=== PATIENT | female | born 1970 | race Caucasian/White ===

== ENCOUNTER 2018-03-06 01:16 | Inpatient (IN) | payer SELFPAY ==
[~2018-03-06] VITALS: Ht 170.2 cm; Wt 81.2 kg
[2018-03-06] VITALS (8 sets, daily range): BP systolic 122–175; BP diastolic 68–90; PULSE 76–119; RESP 16–20; TEMP 97.8–98.4; O2SAT 96–99
[~2018-03-06 01:16] MED LIST: ADDE10 PO
[2018-03-06] MEDS ORDERED: SODIUM CHLOR 0.9% 1000 ML INJ 1,000 ML IV ONE ×2 (01:45→03:30)
--- NOTE | 2018-03-06 02:16 | RADRPT ---
EXAM DATE: 03/06/2018 2:10 AM EDT AGE/SEX: 47 years / Female INDICATIONS: Substernal chest pain. CLINICAL DATA: This is the patient's initial encounter. Patient reports that signs and symptoms have been present for 1 day and indicates a pain score of 8/10. MEDICAL/SURGICAL HISTORY: None. None. COMPARISON: No prior [place] exams available for comparison. FINDINGS: A single AP view of the chest demonstrates the lungs to be symmetrically aerated without evidence of mass, infiltrate or effusion. The cardiomediastinal contours are unremarkable. Osseous structures a re intact. CONCLUSION: No acute intrathoracic disease. Electronically signed by: Jonathan Mosquera MD 03/06/2018 2:15 AM EDT
[2018-03-06 02:27] LABS: BACTERIA, URINE RARE /hpf; BLOOD, URINE TRACE (NEG); GLUCOSE,URINE NEG (NEG); HYALINE CAST, URINE 41 /lpf (RARE); KETONE, URINE 80 mg/dL (NEG); MUCUS URINE MANY /lpf (OCC); NITRITE,URINE NEG (NEG); PH, URINE 5.5 (5.0-8.5); SQUAMOUS EPITHELIAL CELL URINE 2 /hpf (0-5); URINE COLOR YELLOW (YELLW/STRAW); URINE LEUKOCYTE ESTERASE NEG (NEG)
[2018-03-06 02:29] LABS: AUTOMATED NEUTROPHIL # 6.7 TH/MM3 (1.8-7.7); BASOPHIL # 0.1 TH/MM3 (0-0.2); BASOPHIL % 0.6 % (0.0-2.0); EOSINOPHIL # 0.1 TH/MM3 (0-0.4); EOSINOPHIL % 1.3 % (0.0-4.0); HEMATOCRIT 38.7 % (35.0-46.0); HEMOGLOBIN 13.3 GM/DL (11.6-15.3); LYMPH % 23.5 % (9.0-44.0); LYMPHOCYTE # 2.4 TH/MM3 (1.0-4.8); MEAN CELL VOLUME 86.8 FL (80.0-100.0); MEAN CORPUSCULAR HEMOGLOBIN 29.8 PG (27.0-34.0); MEAN CORPUSCULAR HGB CONC 34.4 % (32.0-36.0); MEAN PLATELET VOLUME 8.2 FL (7.0-11.0); MONO % 8.4 % (0.0-8.0); MONOCYTE # 0.8 TH/MM3 (0-0.9); NEUT % 66.2 % (16.0-70.0); PLATELET COUNT 438 TH/MM3 (150-450); RED BLOOD COUNT 4.46 MIL/MM3 (4.00-5.30); RED CELL DISTRIBUTION WIDTH 13.3 % (11.6-17.2); WHITE BLOOD COUNT 10.1 TH/MM3 (4.0-11.0)
[2018-03-06] MEDS ORDERED: LORazepam 2 MG/ML VIAL IV PUSH ONE ×2 (02:30→11:45)
[2018-03-06 02:35] LABS: BILIRUBIN, URINE NEG (NEG)
[2018-03-06 02:40] LABS: BICARBONATE 23.2 MEQ/L (21.0-32.0); BLOOD UREA NITROGEN 7 MG/DL (7-18); CALCIUM 9.1 MG/DL (8.5-10.1); CHLORIDE 103 MEQ/L (98-107); CREATININE 0.84 MG/DL (0.50-1.00); GLOMERULAR FILTRATION RATE 72 ML/MIN (>89); GLUCOSE,RANDOM 102 MG/DL (74-106); MAGNESIUM 1.9 MG/DL (1.5-2.5); SODIUM (NA) 137 MEQ/L (136-145); TROPONIN I LESS THAN 0.02 NG/ML (0.02-0.05)
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
--- NOTE | 2018-03-06 03:08 | RADRPT ---
EXAM DATE: 03/06/2018 3:05 AM EDT AGE/SEX: 47 years / Female INDICATIONS: Cephalgia CLINICAL DATA: This is the patient's initial encounter. Patient reports that signs and symptoms have been present for 1 day and indicates a pain score of 7/10. MEDICAL/SURGICAL HISTORY: None. None. RADIATION DOSE: 56.35 CTDI (mGy) COMPARISON: No prior [place] exams available for comparison. TECHNIQUE: CT of the head without contrast. Using automated exposure control and adjustment of the mA and/or kV according to patient size, radiation dose was kept as low as reasonably achievable to ob tain optimal diagnostic quality images. FINDINGS: Cerebrum: The ventricles are normal for age. Mild cortical atrophy overlying the frontal lobes. No evidence of midline shift, mass lesion, hemorrhage or acute infarction. No extraaxial fluid collecti ons are seen. Posterior Fossa: The cerebellum and brainstem are intact. The 4th ventricle is midline. The cerebe llopontine angle is unremarkable. Extracranial: The visualized portion of the orbits is intact. Skull: The calvaria is intact. No evidence of skull fracture. CONCLUSION: 1. Mild cortical atrophy of the frontal lobes. 2. Otherwise, unremarkable study. Electronically signed by: Jonathan Mosquera MD 03/06/2018 3:06 AM EDT
[2018-03-06] MEDS ORDERED: LORazepam 2 MG/ML VIAL IM PRN (15:00)
[2018-03-06] MEDS ORDERED: BENZTROPINE MESYLATE 2 MG/2 ML VIAL IM PRN (15:00)
[2018-03-06] MEDS ORDERED: BENZTROPINE MESYLATE 1 MG TAB PO PRN (15:00)
[2018-03-06] MEDS ORDERED: ALUMINUM/MAGNESIUM/SIMETH 30 ML CUP PO PRN (15:00)
[2018-03-06] MEDS ORDERED: MAGNESIUM HYDROXIDE SUSP 30 ML CUP PO PRN (15:00)
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
[2018-03-06] MEDS: LORazepam 1 MG TAB PO PRN (18:09)
--- NOTE | 2018-03-06 18:21 | EKG ---
Date Performed: 03/06/2018 Time Performed: 08:59:55 PTAGE: 47 years EKG: Sinus rhythm INCOMPLETE RIGHT BUNDLE BRANCH BLOCK BORDERLINE ECG NO PREVIOUS TRACING DOCTOR: Alonso Momin Interpretating Date/Time 03/06/2018 18:19:36
[2018-03-06] MEDS: OLANZapine 5 MG TAB PO SCH (20:49)
[2018-03-06] MEDS ORDERED: REMOVE OLD NICODERM (NICOTINE) PATCH T-DERMAL PRN (21:00)
[2018-03-06 22:37] LABS: FREE T4 1.05 NG/DL (0.76-1.46)
[2018-03-07 05:59] VITALS: BP 118/69; PULSE 85; RESP 16; TEMP 98; O2SAT 97
[2018-03-07 08:14] LABS: ALBUMIN 3.2 GM/DL (3.4-5.0); AST (GOT) 5 U/L (15-37); BLOOD UREA NITROGEN 4 MG/DL (7-18); CALCIUM 8.3 MG/DL (8.5-10.1); CHLORIDE 111 MEQ/L (98-107); CREATININE 0.63 MG/DL (0.50-1.00); GLOMERULAR FILTRATION RATE 100 ML/MIN (>89); GLUCOSE,RANDOM 86 MG/DL (74-106); SODIUM (NA) 144 MEQ/L (136-145)
[2018-03-07 08:15] LABS: ALT (GPT) 15 U/L (10-53); CHOLESTEROL 134 MG/DL (120-200); TRIGLYCERIDES 79 MG/DL (42-150)
[2018-03-07 08:17] LABS: ALKALINE PHOSPHATASE 54 U/L (45-117); CHOLESTEROL/ HDL RATIO 2.99 RATIO; HDL CHOLESTEROL 44.8 MG/DL (40.0-60.0); LDL CHOLESTEROL 73 MG/DL (0-99); TOTAL BILIRUBIN ADULT 0.3 MG/DL (0.2-1.0); TOTAL PROTEIN 5.9 GM/DL (6.4-8.2)
[2018-03-07] MEDS: LORazepam 1 MG TAB PO PRN ×2 (09:06→17:04)
[2018-03-07] MEDS: ACETAMINOPHEN 325 MG TAB PO PRN (09:08)
[2018-03-07] MEDS: NICOTINE 21 MG/24 HR PATCH T-DERMAL PRN (09:49)
--- NOTE | 2018-03-07 13:26 | HHI.PYPN ---
Subjective Chief Complaint: Psychosis Remarks Patient seen and examined with nurse. Chart reviewed. Case discussed with nursing staff. Patient noted to be somewhat more irritable and dysphoric this morning by nursing. She refused her Zyprexa last night. She completed a right of release this morning. On my examination today, the patient remains extremely delusional. She tells me that she has been implanted with a chip by the [employer]. She tells me that she has "evidence on a code source drive" and as a consequence the government is trying to set her up as a terrorist. She repeats the material about being the human [employer] project and about land being given to her family prior to the country's founding. She does ultimately agree to rescind the ROR and give the Zyprexa a try. She denies any suicidal or homicidal ideation and particular denies any "thoughts of revenge" against the people she believes are conspiring against her. Patient does seek for stimulant, namely Adderall. With the patient's permission, placed a call to mother Kyra Sprague at the number listed in the EMR. Ms. Sprague notes that patient had no history of psychosis until last March. Patient had ordered some substance off the internet from [employer] and had been taking it and had begun to develop the psychotic symptoms present today. Unclear if patient is still using this substance. Mother does note that patient has been taking mother's metoprolol and also has been receiving Valium from a friend. She also has a history of opiate abuse. There is no family history of mental illness except father may have had BPAD. Mother notes patient's behavior of late has been quite erratic. Patient has reportedly been eating poorly. Mother believes patient requires ongoing psychiatric stabilization. Review of Systems ROS Limitations: Psychotic Except as stated in HPI: all other systems reviewed are Neg Mental Status Examination Appearance: Appropriate Consciousness: Alert Orientation: x4 Motor Activity: Other (No abnormal motor movements noted) Speech: Unremarkable Language: Adequate Fund of Knowledge: Adequate Attention and Concentration: Adequate Memory: Unremarkable (Grossly intact on clinical exam) Mood: Other (Dysphoric) Affect: Other (Restricted) Thought Process & Associations: Linear (Within delusional system) Thought Content: Delusional Hallucination Type: None Delusion Type: Somatic, Other (Paranoid/persecutory) Suicidal Ideation: No (But see above) Suicidal Plan: No Suicidal Intention: No Homicidal Ideation: No Homicidal Plan: No Homicidal Intention: No Insight: Fair Judgment: Impulsive Results Labs Item Value Date Time Erythrocyte Sedimentation Rate 10 mm/hr 03/06/182108 Vitamin B12 Level GREATER THAN 2000 PG/ML H 03/06/182108 Estimat Glomerular Filtration Rate 100 ML/MIN 03/07/18 0612 Ammonia 25 MCMOL/L 03/06/18 1520 Free Thyroxine 1.05 NG/DL 03/06/182108 HIV (1&2) Ab and P24 Ag, 4th Gener NONREACTIVE 03/06/182108 Rapid Plasma Reagin NON-REACTIVE 03/06/182108 Labs reviewed. EKG read as sinus rhythm with an incomplete right bundle branch block with a QTc of 415 ms. Vitals/IOs Vital Signs Date Time Temp Pulse Resp B/P (MAP) Pulse Ox O2 Delivery O2 Flow Rate FiO2 03/07/18 05:59 98.0 85 16 118/69 (85) 97 03/06/18 11:35 Room Air Assessment & Plan Problem List: (1) Other psychotic disorder not due to a substance or known physiological condition ICD Codes: F28 - Other psychotic disorder not due to a substance or known physiological condition Assessment & Plan First dose of Zyprexa this evening. Plan to titrate to effect to target psychosis. Workup for organic causes of psychosis so far unrevealing, although collateral information from mother certainly raises the specter of drug-induced psychotic disorder. Continue to monitor on the inpatient unit. Continue other medications and care as ordered. Patient did rescind right of release as noted above. Justification for Cont. Inpt. Impairment in reality construction. High risk for decompensation in less restrictive environment. Discharge Planning Pending psychiatric stabilization Request HC Surrog/Guard Advoc?: No Lloyd Reyes MD Mar 07, 2018 13:26
[2018-03-07 16:00] VITALS: BP 128/85; PULSE 87; RESP 16; TEMP 98.3
[2018-03-07 16:57] LABS: HEMOGLOBIN A1C 5.1 % (4.3-6.0)
[2018-03-07] MEDS: diphenhydrAMINE HCL 50 MG CAP PO PRN (21:16)
[2018-03-07] MEDS: OLANZapine 5 MG TAB PO SCH (21:16)
[2018-03-08 06:07] VITALS: BP 116/73; PULSE 76; RESP 16; TEMP 97.8; O2SAT 99
[2018-03-08] MEDS: LORazepam 1 MG TAB PO PRN ×2 (10:08→16:30)
[2018-03-08] MEDS: ACETAMINOPHEN 325 MG TAB PO PRN ×3 (10:08→21:06)
--- NOTE | 2018-03-08 11:21 | HHI.PYPN ---
Subjective Chief Complaint: Psychosis Remarks Patient seen and examined with nurse and counselor. Chart reviewed. Case discussed with nursing staff. Case discussed in treatment team. On my examination today, the patient is initially in superficially good spirits. She tells me that she feels very much improved. She was apparently hopeful for discharge today, and her mood sours rapidly when I recommend that she remain through the weekend at least. She does ultimately agreed to remain voluntarily. She continues to elaborate delusional material as before, q.v. previous notes, although this is perhaps a little bit less distressing for her today. It is difficult to tell as patient is trying to 'play good,' I suspect in service of hastening discharge. I discuss report from mother that patient was buying drugs off the internet. Patient says that she purchased a drug called "E-hex" from the internet because she could not get anyone to write for Adderall. This may represent N-ethylhexedrone, a stimulant drug. Patient denies ongoing abuse of this substance. She denies side effects from medications. No physical complaints. Review of Systems ROS Limitations: Psychotic, Poor Historian Except as stated in HPI: all other systems reviewed are Neg Mental Status Examination Appearance: Appropriate Consciousness: Alert Orientation: x4 Motor Activity: Other (No hand tremor, no dystonia, no dyskinesia noted. No other motor abnormalities noted.) Speech: Unremarkable Language: Adequate Fund of Knowledge: Adequate Attention and Concentration: Adequate Memory: Unremarkable (Grossly intact on clinical exam) Mood: Irritable Affect: Blunt Thought Process & Associations: Linear (Within delusional system) Thought Content: Delusional Hallucination Type: None Delusion Type: Somatic, Other (Paranoid/persecutory) Suicidal Ideation: No (But see above) Suicidal Plan: No Suicidal Intention: No Homicidal Ideation: No Homicidal Plan: No Homicidal Intention: No Insight: Poor Judgment: Poor Results Labs Labs reviewed. Outstanding psychosis workup labs are extended tox and EDEL. Vitals/IOs Vital Signs Date Time Temp Pulse Resp B/P (MAP) Pulse Ox O2 Delivery O2 Flow Rate FiO2 03/08/18 06:07 97.8 76 16 116/73 (87) 99 03/06/18 11:35 Room Air Assessment & Plan Problem List: (1) Other psychotic disorder not due to a substance or known physiological condition ICD Codes: F28 - Other psychotic disorder not due to a substance or known physiological condition Assessment & Plan Patient is tolerating Zyprexa well. She continues to articulate systematized delusions. Titrate Zyprexa through the weekend to target psychosis. Continue to monitor on the inpatient unit. Continue other medications and care as ordered. Justification for Cont. Inpt. Medication changes. Impairment in reality construction. High risk for decompensation and less restrictive environment. Discharge Planning Pending psychiatric stabilization Request HC Surrog/Guard Advoc?: No Lloyd Reyes MD Mar 08, 2018 11:21
--- NOTE | 2018-03-08 11:49 | PD.TTN ---
Patient Problems 1. Discharge planning 2. Medication compliance 3. Knowledge deficit 4. Lack of coping skills Progress Toward Goals Provider Present: Dr. Solomon Reyes Provider Input: Dr. Reyes's held his treatment team to discuss patient's discharge, treatment plan, and medication. Patient's medication is being adjusted. Patient continues to present depressed, and psychotic Nurse(s) Input: Patient's nurse stated patient is cooperative, guarded, labile, medication compliant, easily agitated Psychiatric Counselors Present: Cecily Sanchez [facility] Psych Therapist Input: Patient presents still disorganized and confused about her situation. Patient is still presenting with delusional content. about being the code source about a radha being planted in her brain. Patient was cooperative during assessment. Group Spec/RT/OT/PATEL Present: AMANDA Kline Group Spec/RT/OT/PATEL Input: Does not attend groups Cecily Sanchez [facility] Mar 08, 2018 11:49
[2018-03-08] MEDS: NICOTINE 21 MG/24 HR PATCH T-DERMAL PRN (16:30)
[2018-03-08 18:05] VITALS: BP 128/68; PULSE 88; RESP 16; TEMP 98.3; O2SAT 99
[2018-03-08] MEDS: OLANZapine 5 MG TAB PO SCH (20:54)
[2018-03-08] MEDS: diphenhydrAMINE HCL 50 MG CAP PO PRN (21:05)
[2018-03-09] MEDS: ACETAMINOPHEN 325 MG TAB PO PRN ×3 (08:35→21:36)
[2018-03-09] MEDS: LORazepam 1 MG TAB PO PRN ×3 (08:35→21:35)
--- NOTE | 2018-03-09 16:23 | HHI.PYPN ---
Subjective Chief Complaint: Psychosis Remarks Pt seen and discussed with staff. She has been compliant with medications and care. She has been in room for most of day but did visit with family today. Decreased delusions. No SI/HI Mental Status Examination Appearance: Appropriate Consciousness: Alert Orientation: x4 Motor Activity: Other (No hand tremor, no dystonia, no dyskinesia noted. No other motor abnormalities noted.) Speech: Unremarkable Language: Adequate Fund of Knowledge: Adequate Attention and Concentration: Adequate Memory: Unremarkable (Grossly intact on clinical exam) Mood: Irritable Affect: Blunt Thought Process & Associations: Linear (Within delusional system) Thought Content: Delusional Hallucination Type: None Delusion Type: Paranoid, Somatic Suicidal Ideation: No (But see above) Suicidal Plan: No Suicidal Intention: No Homicidal Ideation: No Homicidal Plan: No Homicidal Intention: No Insight: Poor Judgment: Poor Results Vitals/IOs Vital Signs Date Time Temp Pulse Resp B/P (MAP) Pulse Ox O2 Delivery O2 Flow Rate FiO2 03/08/18 18:05 98.3 88 16 128/68 (88) 99 03/06/18 11:35 Room Air Assessment & Plan Problem List: (1) Other psychotic disorder not due to a substance or known physiological condition ICD Codes: F28 - Other psychotic disorder not due to a substance or known physiological condition Assessment & Plan Pt improving. Continue current tx plan. Estimated LOS: days Justification for Cont. Inpt. impairments in reality testing. Request HC Surrog/Guard Advoc?: No Nora Hilliard MD Mar 09, 2018 16:23
[2018-03-09 18:10] VITALS: BP 116/63; PULSE 91; RESP 17; TEMP 98.4; O2SAT 97
[2018-03-09] MEDS: OLANZapine 5 MG TAB PO SCH (21:26)
[2018-03-09] MEDS: diphenhydrAMINE HCL 50 MG CAP PO PRN (21:26)
[2018-03-10 06:01] VITALS: BP 104/64; PULSE 77; RESP 16; TEMP 98; O2SAT 96
[2018-03-10] MEDS: ACETAMINOPHEN 325 MG TAB PO PRN ×2 (09:01→15:25)
[2018-03-10] MEDS: LORazepam 1 MG TAB PO PRN ×3 (09:01→21:15)
--- NOTE | 2018-03-10 13:42 | HHI.PYPN ---
Subjective Chief Complaint: Psychosis Remarks Pt has been seclusive to her room. She remains anxious and paranoid, but bizarre behaviors are decreasing. She did take medications without side effects. She reports mood is improving. No SI/HI. Mental Status Examination Appearance: Appropriate Consciousness: Alert Orientation: x4 Motor Activity: Other (No hand tremor, no dystonia, no dyskinesia noted. No other motor abnormalities noted.) Speech: Unremarkable Language: Adequate Fund of Knowledge: Adequate Attention and Concentration: Adequate Memory: Unremarkable (Grossly intact on clinical exam) Mood: Irritable Affect: Blunt Thought Process & Associations: Linear (Within delusional system) Thought Content: Delusional Hallucination Type: None Delusion Type: Paranoid, Somatic (decreased) Suicidal Ideation: No (But see above) Suicidal Plan: No Suicidal Intention: No Homicidal Ideation: No Homicidal Plan: No Homicidal Intention: No Insight: Poor Judgment: Poor Results Vitals/IOs Vital Signs Date Time Temp Pulse Resp B/P (MAP) Pulse Ox O2 Delivery O2 Flow Rate FiO2 03/10/18 06:01 98.0 77 16 104/64 (77) 96 03/06/18 11:35 Room Air Assessment & Plan Problem List: (1) Other psychotic disorder not due to a substance or known physiological condition ICD Codes: F28 - Other psychotic disorder not due to a substance or known physiological condition Assessment & Plan Continue current tx plan. Estimated LOS: days Justification for Cont. Inpt. risk of decompensation Request HC Surrog/Guard Advoc?: Nora Thompson MD Mar 10, 2018 13:42
[2018-03-10] MEDS: NICOTINE 21 MG/24 HR PATCH T-DERMAL PRN (15:26)
[2018-03-10 19:40] VITALS: BP 120/64; PULSE 81; RESP 18; TEMP 98.4; O2SAT 99
[2018-03-10] MEDS: diphenhydrAMINE HCL 50 MG CAP PO PRN (21:15)
[2018-03-10] MEDS: OLANZapine 5 MG TAB PO SCH (21:15)
[2018-03-11 06:00] VITALS: BP 108/60; PULSE 80; RESP 16; TEMP 98.2; O2SAT 99
[2018-03-11] MEDS ORDERED: COLA100C5 PO (09:01)
[2018-03-11] MEDS ORDERED: ZYPR15TA PO (09:01)
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
[2018-03-11] MEDS: LORazepam 1 MG TAB PO PRN (09:18)
== END 2018-03-11 12:50 | disposition home or self-care (01) | DRG 885 ==
LOC: NEPC 01:16 → NEDA 15:00 → H260 17:01
PROVIDERS: ADMIT Psychiatry & Neurology Psychiatry; ATTEND Psychiatry & Neurology Psychiatry
DX: F22 Delusional disorders (principal); F28 Other psychotic disorder not due to a substance or known physiological condition; F41.9 Anxiety disorder, unspecified; F43.10 Post-traumatic stress disorder, unspecified; F17.210 Nicotine dependence, cigarettes, uncomplicated; K59.00 Constipation, unspecified; Z72.0 Tobacco use; Z91.040 Latex allergy status
CPT/HCPCS: 70450; 71045; 80048; 80053; 80061; 80307; 81001; 82140; 82550; 82607; 83036; 83690; 83735; 84439; 84443; 84484; 84703; 85025; 85652; 86038; 86592; 87389; 93005; 96361; 96374; 96375; G0475; G0481; J2060; J7030; Q0163